=== PATIENT | female | born 1990 | race African-American/Black ===

== ENCOUNTER 2019-06-28 10:21 | Emergency (ER) | payer BC, MEDICAID, SELFPAY ==
[2019-06-28 10:50] LABS: Bilirubin Negative (Negative); Blood, Urine Negative (Negative); Clarity Clear (Clear); Glucose, Urine (Dipstick) Normal (Negative); Leukocyte Negative Leu/uL (Negative); Nitrite Negative (Negative); Protein, Urine (Dipstick) Negative (Neg-Trace); Urobilinogen Normal mg/dL (Less than 2)
[2019-06-28 10:51] LABS: #Eosinphils 0.1 thou/uL (0.0-0.7); #Lymphocytes 2.6 thou/uL (1.20-3.40); #Monocytes 0.4 thou/uL (0.11-0.59); #Neutrophils 4.3 thou/uL (1.40-6.50); %Basophils 0.5 % (0.0-1.0); %Eosinophils 1.6 % (0.0-10.0); %Lymphocytes 35.4 % (21.0-51.0); %Monocytes 4.7 % (0.0-10.0); %Neutrophils 57.9 % (42.0-75.0); Hemoglobin 13.2 g/dL (12.0-16.0); Mean Corpuscular HGB CONC 32.9 g/dL (32.0-36.0); Mean Corpuscular Hemoglobin 31.8 pg (27.0-31.0); Mean Corpuscular Volume 96.8 fL (78.0-98.0); Mean Platelet Volume 6.6 fL (7.4-10.4); Platelet Count 336 thou/uL (130-400); RBC Distribution Width 11.6 % (11.5-14.5); Red Blood Cell (RBC) Count 4.15 mill/uL (4.20-5.40); White Blood Cell (WBC) Count 7.5 thou/uL (4.8-10.8)
[2019-06-28 11:10] LABS: ALT (SGPT) 11 U/L (8-55); AST (SGOT) 14 U/L (5-34); Alkaline Phosphatase 97 U/L (40-110); Anion Gap 11 mmol/L (10-20); BUN (Urea Nitrogen) 6 mg/dL (7.0-18.7); Bilirubin, Total 0.3 mg/dL (0.2-1.2); Calc. Creatinine Clearance 0 mL/min (70-130); Calcium 8.9 mg/dL (7.8-10.44); Carbon Dioxide 24 mmol/L (22-29); Chloride 107 mmol/L (98-107); Estimated GFR-MDRD Greater than 90; Globulin 2.7 g/dL (2.4-3.5); Glucose 78 mg/dL (70-105); Lipase 8 U/L (8-78); Potassium 3.5 mmol/L (3.5-5.1); Protein, Total 6.7 g/dL (6.0-8.3); Sodium 138 mmol/L (136-145)
[2019-06-28 11:18] LABS: Pregnancy Test - Urine (BHCG) POSITIVE (Negative); Pregu Control Background? CLEAR/WHITE (CLR/WHITE); Pregu Control Bar Appear? YES (CONTROL BAR); Specific Gravity 1.013 (1.002-1.036)
--- NOTE | 2019-06-28 13:42 | ULT ---
EXAM: Transabdominal and transvaginal pelvic ultrasound with Doppler PROVIDED CLINICAL HISTORY: Pelvic pain COMPARISON: None FINDINGS: There is a single live intrauterine gestation, 7 weeks 3 days by crown-rump length. Heart rate of 141 bpm is documented. There is a small amount of perigestational hemorrhage suspected. There is focal prominence of the uterine myometrium posteriorly that could reflect fibroid but is incompletely nena cterized on the basis of this study. This produces mass effect upon the gestational sac. Right and left ovaries appear sonographically unremarkable. Color Doppler and spectral analysis of th e ovarian waveforms demonstrates normal flow bilaterally. There is no evidence for free pelvic fluid. IMPRESSION: 1. Single live intrauterine gestation, 7 weeks 4 days by crown-rump length. Small amount of perigesta tional hemorrhage. 2. Possible posterior myometrial fibroid. Follow-up recommended.
== END 2019-06-28 15:00 | disposition home or self-care (01) ==
LOC: ERS 10:21
DX: O10.911 Unspecified pre-existing hypertension complicating pregnancy, first trimester (principal); O99.341 Other mental disorders complicating pregnancy, first trimester; F41.9 Anxiety disorder, unspecified; F31.9 Bipolar disorder, unspecified; F20.9 Schizophrenia, unspecified; Z79.899 Other long term (current) drug therapy; Z3A.01 Less than 8 weeks gestation of pregnancy
CPT/HCPCS: 36415; 76856; 80053; 81003; 81025; 83690; 84702; 85025; 86900; 86901; 90384; 96372

== ENCOUNTER 2019-10-07 19:35 | Day surgery (SDC) | payer OTHER ==
[2019-10-07 20:13] VITALS: BMI 31.0
[2019-10-07] MEDS ORDERED: hydrALAZINE 20 MG/ML VIAL SLOW IVP PRN (20:50)
--- NOTE | 2019-10-07 21:16 | PDOC.FPROB ---
FMR OB H&P: HPI - History of Present Illness Chief Complaint: Fall Indentification: 28 yo F History of Present Illness: Pt is a 28 yo @ 21.6 wks by 7.4 wk US with hx of pre-E in last who presents with abdominal, groin, and back pain from a fall. The patient was at [employer] yesterday and was outside and slipped. She did a split and hit her head, belly, and knee on the car. She stated that afterwards she initially felt fine, but she later started having pain with movement. She says she has groin pain. LLQ pain that is sharp and occurs intermittently and she is unsure if they are contractions. She also has "Charley horse" pain along the sides of her spine. She denies any vaginal bleeding, LOF, or hematuria. She endorses dysuria this morning. 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: Denies any history of abnormal pap smears or STD - Surgical History Sx History: pLTCS - Social History Social History: No tobacco, alcohol, or recreational drugs - Family History Family History: Mom: HTN, DM Dad: HTN FMR OB H&P: Medications - Current Home Medications: Medication Instructions Recorded Confirmed Type Cyclobenzaprine [Flexeril] 10 mg PO TID PRN 5 Days #15 tab 10/07/19 Rx FLUoxetine HCl [Fluoxetine HCl] 40 mg PO 10/07/19 History 21/Iron Fu/Folic Acid 1 tablet PO DAILY 10/07/19 10/07/19 History [ Complete Caplet] traZODone HCl [Trazodone HCl] 100 mg PO 06/11/20 History Allergies/Adverse Reactions: Allergies Allergy/AdvReac Type Severity Reaction Status Date / Time chocolate flavor Allergy Verified 10/07/19 20:15 FMR OB H&P: ROS - Review of Systems General: denies: fever/chills Eyes: denies: vision changes ENT: denies: nasal congestion, rhinorrhea, sore throat Cardiovascular: denies: chest pain, edema Respiratory: denies: cough, congestion, shortness of breath Gastrointestinal: reports: abdominal pain. denies: nausea, vomiting, diarrhea, constipation Genitourinary (Female): reports: dysuria. denies: vaginal discharge, vaginal bleeding, contractions Musculoskeletal: reports: pain, tenderness Neurologic: denies: numbness, weakness Integumentary: reports: other (abnormal L wrist tattoo). denies: itching Hematologic/Lymphatic: denies: prolonged or excessive bleeding, enlarged lymph nodes Psychological: reports: anxiety FMR OB H&P: Vital Signs - Maternal Vital signs: BP: 105/55 HR: 86 T: 98.4 FMR OB H&P: Physical Exam - Physical Exam General: NAD, awake, alert and oriented HEENT: normocephalic and atraumatic, EOMI, MMM, conjunctiva clear, normal nasal mucosa, oropharynx clear Neck: supple, no LAD Heart: RRR, normal S1/S2, no murmurs/rubs/gallops, pulses present, no edema General: CTAB, no respiratory distress, good air movement, no rales/rhonchi, no wheezing, no retractions Abdomen: soft, gravid, bowel sound present Musculoskeletal: pulses present, FROM in all four extremities Neurological: cranial nerves II through XII intact, no focal deficit Skin: good tugor Deviation from normal: Peeling of L wrist tattoo Lymphatic: no unusual bruising or bleeding, no purpura, no petechia Psychiatric: normal mood and affect FMR OB H&P: A/P - Problem List (1) Fall Status: Acute Code(s): W19.XXXA - UNSPECIFIED FALL, INITIAL ENCOUNTER (2) Dysuria Status: Acute Code(s): R30.0 - DYSURIA (3) Status: Acute (4) Bipolar 1 disorder Status: Acute Code(s): F31.9 - BIPOLAR DISORDER, UNSPECIFIED (5) Schizophrenia Status: Acute Code(s): F20.9 - SCHIZOPHRENIA, UNSPECIFIED (6) PTSD (post-traumatic stress disorder) Status: Acute Code(s): F43.10 - POST-TRAUMATIC STRESS DISORDER, UNSPECIFIED Disposition: Pt is a 28 yo @ 21.6 by 7.4 wk US with hx of pre-E in last who presents with abdominal, groin, and back pain from a fall. 1. Fall Has not had growth US * Limited US @ bedside showed posterior placenta, HR: 134 * Will get Growth US to assess for any bleeding although pt denies vaginal bleeding and due to the fact the pt has not had a growth US * Tylenol & Flexeril for pain 2. Dysuria Will get UA to check for infection * UA: Neg 3. sIUP Poor to PNC * Will need Rhogam @ 28 wks * Poor Follow-up * Recommend return to clinic 4. Hx of Bipolar, Schizoprenia, & PTSD Continue home medications: Prozac and Trazadone Dispo: Discharge home. Schedule appt @ [facility]. Flexeril & Tylenol prn for pain. Discussion: Date/Time: 10/07/192111 This H&P was discussed with Dr. Schmidt and Dr. Villanueva who agree with the above documentation and plan. Addendum - Attending - Attending Attestation Date/Time: 10/08/19521 I personally evaluated the patient and discussed the management with the team. I agree with the History, Examination, Assessment and Plan documented above with any addition or exceptions noted below. No signs of significant trauma. Paraspinals TTP, but no midline. Analgesia and sono. Discussed importance of follow up in clinic and OBT warnings.
[2019-10-07] MEDS ORDERED: Acetaminophen 500 MG TAB PO SCH (21:30)
[2019-10-07] MEDS ORDERED: Cyclobenzaprine 10 MG TAB PO SCH (21:45)
--- NOTE | 2019-10-07 22:46 | ULT ---
OB ultrasound: HISTORY: Size and dates FINDINGS: A single live intrauterine gestation is seen with measurements corresponding to an estimated gestatio nal age of 22 weeks and RAMA at 02/10/2020. The estimated weight measures 5 27 g or 1 lb. 3 oz. measurements as follows: BPD 4.93 cm, 20 weeks 6 days HC 18.87 cm, 21 weeks 1 day AC:18.57 cm, 20 weeks 3 days FL 3.89 cm, 22 weeks 3 days heart rate measures 168 bpm. Placenta is posteriorly located without evidence of placenta previ a. Amniotic fluid is adequate. The three-vessel cord, cord insertion, bladder, lateral ventricles, cerebellum, stomach, 4 chambered heart, nose/lips, spine are visualized and demonstrate no definite anomalies. The kidneys are not well seen. IMPRESSION: Single IUP of 22 weeks estimated gestational age and RAMA at 02/10/2020
[2019-10-07 22:55] LABS: Bilirubin Small (Negative); Blood, Urine Negative (Negative); Glucose, Urine (Dipstick) Negative (Negative); Leukocyte Trace (Negative); Nitrite Negative (Negative); Protein, Urine (Dipstick) 30 mg/dL (Neg-Trace); Urobilinogen 0.2 mg/dL (Less than 2)
[2019-10-07 22:59] LABS: Clarity Clear (Clear)
[2019-10-07 23:01] LABS: RBC/HPF 0-3 HPF (0-3); Squamous Epithelial 0-3 HPF (0-3); WBC/HPF 0-3 HPF (0-3)
[2019-10-07 23:02] LABS: Bacteria/HPF None Seen HPF (None Seen); Mucous/LPF Rare LPF (<2+); Other Microscopic Description Less than 2 mL rec'd
== END 2019-10-07 23:30 | disposition home or self-care (01) ==
LOC: L&D/OP 19:35
PROVIDERS: ATTEND Emergency Medicine
DX: O99.89 Other specified diseases and conditions complicating pregnancy, childbirth and the puerperium (principal); R10.30 Lower abdominal pain, unspecified; M54.9 Dorsalgia, unspecified; R30.0 Dysuria; O99.342 Other mental disorders complicating pregnancy, second trimester; F31.9 Bipolar disorder, unspecified; F20.9 Schizophrenia, unspecified; F43.10 Post-traumatic stress disorder, unspecified; O34.211 Maternal care for low transverse scar from previous cesarean delivery; Z3A.21 21 weeks gestation of pregnancy; Z79.899 Other long term (current) drug therapy; Z91.018 Allergy to other foods; W19.XXXA Unspecified fall, initial encounter
CPT/HCPCS: 76805; 81003; 81015; 99283

== ENCOUNTER 2019-11-28 23:19 | Day surgery (SDC) | payer OTHER ==
[2019-11-28 23:47] VITALS: BMI 29.8
[2019-11-29] MEDS ORDERED: hydrALAZINE 20 MG/ML VIAL SLOW IVP PRN (00:44)
--- NOTE | 2019-11-29 01:24 | PDOC.FPROB ---
FMR OB H&P: HPI - History of Present Illness Chief Complaint: contractions History of Present Illness: Patient is a 28 yo, @ 29.4 weeks by 7.4 week sono, PMHx of Bipolar Disorder , PTSD, Depression, Schizophrenia who presents with complaints of contractions starting 1.5 hours ago, noting they are 5-7 minutes apart. She states she has had good movement and denies vaginal bleeding, discharge or gush of fluid. She denies fever/chills. Patient reports she is not taking her medications for her mental health illness due to being incarcerated. She also reports that she is getting dialysis for protein in one of her kidneys 2x a month in [place]. Primary Care Physician: DAPHNE FMR OB H&P: Current - Care : 2 Para: 1 Gestational age: 29.4 weeks Due date: 02/10/2020 Dating Criteria: 7.4 week sono Course/Complications: poor care - OB Labs Blood type: O RH: negative Antibody Screen: positive HIV: negative RPR: negative HepBsAg: negative Rubella: immune Quad screen: negative Urine drug screen: not done (pending*) Gonorrhea: negative Chlamydia: negative Pap Smear: denies history of abnormal pap or STDs GBS: unknown FMR OB H&P: History - Past Medical History PMH: HTN, Bipolar Disorder, schizophrenia, depression, PTSD - OB History OB History: 1 pLTCS on 07/25/18 for arrest of labor at 37.5 weeks, Pre-E with this - 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: Denies history abnormal paps or STDs - Surgical History Sx History: pLTCS - Social History Social History: Smokes marijuana frequently for "pain relief", denies smoking tobacco, alcohol or drugs - Family History Family History: HTN, DM FMR OB H&P: Medications - Current Home Medications: Medication Instructions Recorded Confirmed Type FLUoxetine HCl [Fluoxetine HCl] 40 mg PO 10/07/19 History 21/Iron Fu/Folic Acid 1 tablet PO DAILY 10/07/19 10/07/19 History [ Complete Caplet] traZODone HCl [Trazodone HCl] 100 mg PO 10/07/19 History Allergies/Adverse Reactions: Allergies Allergy/AdvReac Type Severity Reaction Status Date / Time chocolate flavor Allergy Hives Verified 11/28/19 23:38 FMR OB H&P: ROS - Review of Systems General: denies: fever/chills, weight/appetite/sleep changes Eyes: denies: eye pain, vision changes ENT: denies: nasal congestion, rhinorrhea Cardiovascular: denies: chest pain, edema Respiratory: denies: cough, congestion Gastrointestinal: denies: abdominal pain, vomiting, diarrhea Genitourinary (Female): reports: contractions. denies: incontinence, dysuria, vaginal discharge, vaginal bleeding Musculoskeletal: denies: pain, stiffness Neurologic: denies: numbness, syncope Integumentary: denies: itching, rash Breast: denies: lumps, bumps Endocrine: denies: polydipsia, polyuria Hematologic/Lymphatic: denies: prolonged or excessive bleeding Psychological: reports: depression, other (Bipolar disorder, schizophrenia) FMR OB H&P: Vital Signs - Maternal Vital signs: BP 129/75, HR 71, temp 98.2F, wt 91.6kg - Heart Tones Baseline: 130 Variability: moderate Acceleration: present Deceleration: absent Category: category 1 [place] contractions every: only 1 seen over 60 minutes FMR OB H&P: Physical Exam - Physical Exam General: NAD, awake, alert and oriented HEENT: normocephalic and atraumatic, PERRLA, EOMI Neck: supple, FROM Chest: non-tender to palpation, no lesions Breast: symmetric, non-tender Heart: RRR, no murmurs/rubs/gallops General: CTAB, no respiratory distress Abdomen: soft, gravid, non-tender Musculoskeletal: normal gait and station, pulses present Neurological: sensation to pain,touch and proprioception grossly normal, DTR +1 , no focal deficit Skin: no rash, good tugor Lymphatic: no unusual bruising or bleeding, no purpura Psychiatric: normal mood and affect, other (thought content bizarre) - Pelvic Exam SVE: closed, thick and high FMR OB H&P: A/P Discussion: Date/Time: 11/29/19 0122 Patient is a 28 yo, @ 29.4 weeks by 7.4 week sono, PMHx of Bipolar Disorder , PTSD, Depression, Schizophrenia who presents with complaints of contractions. sIUP Poor to PNC closed, thick and high FHTs 130s, moderate variability, + accels, no decels; 1 contraction in 60 minutes - encouraged oral hydration - recommended return to clinic Cannabinoid Use - UDS ordered - encouraged cessation - repeat next office visit RH- Antibody positive per chart review -Will need Rhogam @ next office visit Hx of Bipolar, Depression, Schizoprenia, & PTSD - not currently taking home medications - rec continuing home medications in correctional facility Dispo: Discharge home This H&P was discussed with Dr. Tavares and Dr. Rg who agree with the above documentation and plan. Addendum - Attending - Attending Attestation Date/Time: 11/29/19 0804 I personally evaluated the patient and discussed the management with Dr. Elizabeth/ Chaitanya. I agree with the History, Examination, Assessment and Plan documented above with any addition or exceptions noted below. pre-labor CTX likely 2/2 volume depletion. 2 CTX seen on toco by me. Sent back to retirement. Needs f/u this week at clinic. UA and UDS unremarkable.
[2019-11-29 01:53] LABS: Bacteria/HPF None Seen HPF (None Seen); Bilirubin Negative (Negative); Blood, Urine Negative (Negative); Clarity Clear (Clear); Glucose, Urine (Dipstick) Normal (Negative); Ketone, Urine Negative (Negative); Leukocyte 25 Leu/uL (Negative); Nitrite Negative (Negative); Protein, Urine (Dipstick) Negative (Neg-Trace); RBC/HPF 0-3 HPF (0-3); Specific Gravity, Urine 1.009 (1.002-1.036); Squamous Epithelial None Seen HPF (0-3); Urobilinogen Normal mg/dL (Less than 2); WBC/HPF 0-3 HPF (0-3); pH, Urine 6.5 (5.0-9.0)
[2019-11-29 02:06] LABS: Amphetamine Not Detected (NotDetected); Barbiturates Screen Not Detected (NotDetected); Benzodiazepine Screen Not Detected (NotDetected); Cocaine Metabolite Screen Not Detected (NotDetected); Medtox Control Line Valid? VALID (VALID); Medtox Reader # READER 4; Methadone Not Detected (NotDetected); Methamphetamine Not Detected (NotDetected); Opiate Screen Not Detected (NotDetected); Oxycodone Screen Not Detected (NotDetected); Phencyclidine (PCP) Not Detected (NotDetected); THC/Cannabinoid Screen Not Detected (NotDetected); Tricyclic Screen Not Detected (NotDetected)
[2019-11-29 02:08] LABS: Urine Culture Reflex Yes Yes
== END 2019-11-29 01:13 ==
LOC: L&D/OP 23:19
PROVIDERS: ATTEND Obstetrics & Gynecology
DX: O47.03 False labor before 37 completed weeks of gestation, third trimester (principal); O99.343 Other mental disorders complicating pregnancy, third trimester; F31.9 Bipolar disorder, unspecified; F20.9 Schizophrenia, unspecified; F43.10 Post-traumatic stress disorder, unspecified; O34.211 Maternal care for low transverse scar from previous cesarean delivery; O11.3 Pre-existing hypertension with pre-eclampsia, third trimester; O10.913 Unspecified pre-existing hypertension complicating pregnancy, third trimester; Z3A.29 29 weeks gestation of pregnancy; Z79.899 Other long term (current) drug therapy; Z91.02 Food additives allergy status
CPT/HCPCS: 80306; 81001; 87086; 99283

== ENCOUNTER 2020-02-02 10:06 | Day surgery (SDC) | payer OTHER ==
--- NOTE | 2020-02-02 10:38 | PDOC.FPROB ---
FMR OB H&P: HPI - History of Present Illness Chief Complaint: Contractions History of Present Illness: Patient is a 29 yo F @ 38.5 weeks based on US @ 7.3 week US, RAMA 02/10/2020, who presents due to contractions and loss of her mucous plug. She states she had contractions throughout the night every 4 minutes, and she lost her mucous plug around 0300 this morning. She states since this morning her contractions have calmed down. She states she has had a small trickle of fluid down her leg today, unknown color, but denies any gush of fluids. She denies bleeding. States baby is active. FMR OB H&P: Current - Care : 3 Para: 1011 Gestational age: 38.5 wks Due date: 02/10/2020 Dating Criteria: 7.3 week sono Course/Complications: Incarceration interrupting care - OB Labs Blood type: O RH: negative Antibody Screen: negative HIV: negative RPR: negative HepBsAg: negative Rubella: immune Gonorrhea: negative Chlamydia: negative GBS: unknown H&H: 11.7/34.8 Platelets: 297 FMR OB H&P: History - Past Medical History PMH: Anxiety MDD PTSD Migraine - OB History OB History: Hx of pre-E wit severe features Rh Negative Previous 1 year ago, patient states she was a mIOL and failed to progress, no complciations of csection Acid Reflux Spontaneous in 2016 - 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: 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 - Surgical History Sx History: None - Social History Social History: Hx of marijuana use Hx of "pill popping" Denies drug use, tobacco, - Family History Family History: Maternal grandmother: ID, throat cancer - smoker Maternal grandfather: HLD Mother: HTN, Bipolar, Depression Father: HTN, Depression Sister: HTN FMR OB H&P: Medications - Current Home Medications: Medication Instructions Recorded Confirmed Type FLUoxetine HCl [Fluoxetine HCl] 40 mg PO DAILY 10/07/19 02/03/20 History 21/Iron Fu/Folic Acid 1 tablet PO DAILY 10/07/19 02/03/20 History [ Complete Caplet] traZODone HCl [Trazodone HCl] 100 mg PO DAILY 10/07/19 02/03/20 History Allergies/Adverse Reactions: Allergies Allergy/AdvReac Type Severity Reaction Status Date / Time chocolate flavor Allergy Hives Verified 02/03/20 11:46 FMR OB H&P: ROS - Review of Systems General: denies: fever/chills, weight/appetite/sleep changes Eyes: denies: eye pain, vision changes ENT: denies: nasal congestion, rhinorrhea Cardiovascular: reports: edema (1+ pitting edema bilaterally). denies: chest pain, palpitation Respiratory: denies: cough, shortness of breath Gastrointestinal: denies: nausea, vomiting, diarrhea, constipation Genitourinary (Female): reports: vaginal discharge, contractions. denies: incontinence, dysuria, vaginal bleeding Musculoskeletal: denies: pain, stiffness Neurologic: denies: numbness, syncope, seizures Integumentary: denies: itching, rash Breast: denies: lumps, bumps Hematologic/Lymphatic: denies: prolonged or excessive bleeding, enlarged lymph nodes Psychological: reports: depression. denies: anxiety FMR OB H&P: Vital Signs - Maternal Vital signs: BP 120/70, HR 84, T 97.9, - Heart Tones Baseline: 140 Variability: moderate Acceleration: present Deceleration: absent Category: category 1 [place] contractions every: 1 in an hour stip FMR OB H&P: Physical Exam - Physical Exam General: NAD HEENT: normocephalic and atraumatic, PERRLA Neck: supple, FROM Heart: RRR, normal S1/S2 General: CTAB, no respiratory distress Abdomen: non-tender, bowel sound present Musculoskeletal: normal gait and station, pulses present, FROM in all four extremities Neurological: no focal deficit Skin: no rash, good tugor Lymphatic: no unusual bruising or bleeding, no purpura Psychiatric: intact recent and remote memory, good judgement and insight, normal mood and affect - Pelvic Exam Cervix: no masses, no lesions, no blood Deviation from normal: no fluid pooling, no pooling with valsalva SVE: closed, thick, high Membranes: intact FMR OB H&P: A/P Discussion: Date/Time: 02/02/20 1038 Patient is a 29 yo F @ 38.5 weeks based on US @ 7.3 weeks, RAMA 02/11/2020, who presents due to contractions and loss of her mucous plug. Closed/thick/high on check today. Term Labor Previous delivery due to labor failure to progress Patient plans to have repeat c section Reviewed images from [facility] U/S, 7.3 week [address] places RAMA 02/11/2020 Bed-side US performed by Dr. Elizabeth/Patsy today showed baby cephalic, deepest vertical pocket >5, placenta fundal L Sterile speculum exam revealed no pooling, no fluid from os with valsalva Labs negative at visit on 12/21/2019 - will get GBS swab, covid swab today - patient is scheduled patient for csection 02/04/2020 at noon - gave patient ED precautions for possible labor or preeclampsia symptoms Hx of Preeclampsia - BPs wnl today, highest of 120/70 - no severe features - pt states she is taking asa Hx of MDD, Anxiety, Schizophrenia - continue trazadone, prozac Hx of reflux - controlled This H&P was discussed with Dr. Schmidt who agrees with the above documentation and plan. Addendum - Attending - Attending Attestation Date/Time: 02/03/20 2432 I personally evaluated the patient and discussed the management with the team. I agree with the History, Examination, Assessment and Plan documented above with any addition or exceptions noted below. Variable story from patient. Loss of mucous plug vs none, no rupture, no preE symptoms. She tells me contractions have resolved. +FM. No VB. Neg pooling/valsalva. Normal fluid. FHTs cat 1, toco quite. Scheduled for c/s on Friday. Reviewed dating sono - CRL would make her 39/0 on Friday. Return prec autions discussed.
[2020-02-02 12:40] VITALS: BMI 34.0
[2020-02-02 18:58] LABS: SARS-CoV-2 MS2 Positive; SARS-CoV-2 N Gene Negative; SARS-CoV-2 S Gene Negative; SARS-CoV-2 by NAA Not Detected (NotDetected); SARS-CoV-2 orf1ab Negative
== END 2020-02-02 12:20 | disposition home or self-care (01) ==
LOC: L&D/OP 10:06
PROVIDERS: ATTEND Emergency Medicine
DX: O47.1 False labor at or after 37 completed weeks of gestation (principal); O99.891 Other specified diseases and conditions complicating pregnancy; N89.8 Other specified noninflammatory disorders of vagina; O99.613 Diseases of the digestive system complicating pregnancy, third trimester; K21.9 Gastro-esophageal reflux disease without esophagitis; O99.343 Other mental disorders complicating pregnancy, third trimester; F41.9 Anxiety disorder, unspecified; F32.9 Major depressive disorder, single episode, unspecified; F43.10 Post-traumatic stress disorder, unspecified; F20.9 Schizophrenia, unspecified; O09.293 Supervision of pregnancy with other poor reproductive or obstetric history, third trimester; O34.219 Maternal care for unspecified type scar from previous cesarean delivery; Z3A.38 38 weeks gestation of pregnancy; Z79.899 Other long term (current) drug therapy; Z91.018 Allergy to other foods; Z20.828 Contact with and (suspected) exposure to other viral communicable diseases
CPT/HCPCS: 76815; 87077; 87081; 87635; U0003

== ENCOUNTER 2020-02-03 11:11 | Inpatient (IN) | payer OTHER ==
[2020-02-03] MEDS ORDERED: FLU VACC QS2020-21(6MOS UP)/PF 60 MCG/0.5 ML SYRINGE IM ONE (12:00)
--- NOTE | 2020-02-03 12:41 | PDOC.FPROB ---
FMR OB H&P: HPI - History of Present Illness Chief Complaint: contractions History of Present Illness: Patient is a 29 yo F @ 38.6 weeks based on US @ 7.3 week US, RAMA 02/10/2020. Patient presents stating that she has been having contractions since last night, every 2-3 minutes. States she is still having them now. Notes that she also has some constant tiny amount of fluid leakage, clear. She reports some black floaters in her vision that have been there since yesterday, denies hea dache, dizzy, chest pain, shortness of breath, fever, urinary symptoms. Patient presented yesterday to the ED and was brought up to L&D where she was monitored and a speculum exam was performed showing no pooling. FHTs yesterday were cat I, with 1 contraction in an hour. Patient was sent home with a scheduled csection for 02/04/2020. FMR OB H&P: Current - Care : 3 Para: 1011 Gestational age: 38.6 weeks Due date: 02/10/2020 Dating Criteria: 7.3 week sono Course/Complications: Incarceration interrupting care - OB Labs Blood type: O RH: negative Antibody Screen: negative HIV: negative RPR: negative HepBsAg: negative Rubella: immune Quad screen: negative Urine drug screen: negative Gonorrhea: negative Chlamydia: negative H&H: 11.7/34.8 Platelets: 297 FMR OB H&P: History - Past Medical History PMH: Anxiety MDD PTSD Migraine - OB History OB History: Hx of pre-E wit severe features Rh Negative Previous 1 year ago, patient states she was a mIOL and failed to progress, no complciations of csection Acid Reflux Spontaneous in 2016 - 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: 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 - Surgical History Sx History: none - Social History Social History: Hx of marijuana use Hx of "pill popping" Denies drug use, tobacco, alcohol - Family History Family History: Maternal grandmother: MS, throat cancer - smoker Maternal grandfather: HLD Mother: HTN, Bipolar, Depression Father: HTN, Depression Sister: HTN FMR OB H&P: Medications - Current Home Medications: Medication Instructions Recorded Confirmed Type FLUoxetine HCl [Fluoxetine HCl] 40 mg PO DAILY 10/07/19 02/03/20 History 21/Iron Fu/Folic Acid 1 tablet PO DAILY 10/07/19 02/03/20 History [ Complete Caplet] traZODone HCl [Trazodone HCl] 100 mg PO DAILY 10/07/19 02/03/20 History Allergies/Adverse Reactions: Allergies Allergy/AdvReac Type Severity Reaction Status Date / Time chocolate flavor Allergy Hives Verified 02/03/20 11:46 FMR OB H&P: ROS - Review of Systems General: denies: fever/chills, weight/appetite/sleep changes Eyes: reports: scotomas. denies: eye pain ENT: denies: nasal congestion, rhinorrhea Cardiovascular: reports: edema. denies: chest pain, palpitation Gastrointestinal: denies: abdominal pain, bright red blood Genitourinary (Female): reports: vaginal discharge (clear), contractions. denies: incontinence, dysuria, vaginal bleeding Musculoskeletal: reports: stiffness Neurologic: denies: numbness, syncope, seizures Integumentary: denies: itching, rash Breast: denies: lumps, bumps Endocrine: denies: cold intolerance, heat intolerance Hematologic/Lymphatic: denies: prolonged or excessive bleeding, enlarged lymph nodes Psychological: reports: depression. denies: anxiety FMR OB H&P: Vital Signs - Maternal Vital signs: BP: 134/84, HR 88, temp 98.3 - Heart Tones Baseline: 140 Variability: moderate Acceleration: present Deceleration: absent Category: category 1 [place] contractions every: none FMR OB H&P: Physical Exam - Physical Exam General: NAD HEENT: normocephalic and atraumatic, PERRLA Neck: supple Chest: non-tender to palpation Breast: symmetric, non-tender Heart: RRR, normal S1/S2 General: CTAB, no respiratory distress, no wheezing Abdomen: gravid, non-tender Neurological: no focal deficit Skin: no rash, good tugor Lymphatic: no unusual bruising or bleeding, no purpura Psychiatric: intact recent and remote memory, good judgement and insight FMR OB H&P: A/P Discussion: Date/Time: 02/03/20 1241 Patient is a 29 yo F @ 38.6 weeks based on US @ 7.3 weeks, RAMA 02/11/2020, who presents due to contractions and loss of her mucous plug. Closed/thick/high on check today. Term Labor Previous delivery due to labor failure to progress Patient plans to have repeat c section Reviewed images from [facility] U/S, 7.3 week sono [facility] RAMA 02/11/2020 Bed-side US performed by Dr. Elizabeth/Patsy today showed baby cephalic, deepest vertical pocket >5, placenta fundal L Labs negative at visit on 12/21/2019 Sterile speculum exam revealed no pooling, no fluid from os with valsalva - covid swab negative, GBS pending - amnisure + for AROM - Will admit for csection today Hx of Preeclampsia - BPs wnl today, highest of 134/84 - +scotomas, denies other severe features - pt states she is taking asa Hx of MDD, Anxiety, Schizophrenia - continue trazadone, prozac Hx of reflux - controlled This H&P was discussed with Dr. Schmidt who agrees with the above documentation and plan. Addendum - Attending - Attending Attestation Date/Time: 02/03/20 8036 I personally evaluated the patient and discussed the management with the team. I agree with the History, Examination, Assessment and Plan documented above with any addition or exceptions noted below. Term latent labor (changed from yesterday) with +amnisure. Plan for repeat c- section. I discussed the r/b/a/i of repeat , including pain, bleeding, infection, damage to bowel, bladder, and other internal organs, need for transfusion, surgical methods to control bleeding up to and including hysterectomy, repeat operation, and prolonged hospitalization. She voices understanding and desires to proceed.
[2020-02-03 12:50] LABS: Amnisure Test RUPTURE DETECTED (No Rupture)
[2020-02-03 12:52] LABS: Amnisure Internal Control QC ACCEPTABLE (ACCEPTABLE)
[2020-02-03] MEDS ORDERED: Promethazine HCl 25 MG/ML VIAL IM PRN ×2 (13:36→18:17)
[2020-02-03] MEDS ORDERED: Butorphanol Tartrate 1 MG/ML VIAL SLOW IVP PRN (13:36)
[2020-02-03] MEDS ORDERED: Ondansetron PF 4 MG/2 ML Vial IVP PRN ×2 (13:36→18:17)
[2020-02-03] MEDS ORDERED: hydrALAZINE 20 MG/ML VIAL SLOW IVP PRN ×2 (13:36→20:27)
[2020-02-03] MEDS ORDERED: Acetaminophen 500 MG TAB PO PRN (13:36)
[2020-02-03] MEDS ORDERED: Azithromycin 500 MG in Sodium Chloride 0.9% 250 ML 250 ML IVPB SCH (13:45)
[2020-02-03] MEDS ORDERED: Bicitra 30 ML UDCUP PO SCH (13:45)
[2020-02-03] MEDS ORDERED: CEFAZOLIN 2 GM in Premix Bag 1 BAG IVPB SCH (13:45)
[2020-02-03 14:59] LABS: Hemoglobin 12.9 g/dL (12.0-16.0); Mean Corpuscular HGB CONC 32.6 g/dL (32.0-36.0); Mean Corpuscular Hemoglobin 33.4 pg (27.0-31.0); Platelet Count 291 thou/uL (130-400); Red Blood Cell (RBC) Count 3.86 mill/uL (4.20-5.40); White Blood Cell (WBC) Count 7.6 thou/uL (4.8-10.8)
[2020-02-03] MEDS ORDERED: ePHEDrine 50 MG/ML VIAL ONE (15:27)
[2020-02-03] MEDS ORDERED: PHENYLEPHRINE-NS 100 MCG/ML 10 ML SYRINGE ONE (15:27)
[2020-02-03] MEDS ORDERED: Oxytocin 10 UNITS/ML VIAL ONE (15:27)
[2020-02-03] MEDS ORDERED: Ondansetron PF 4 MG/2 ML Vial ONE (15:27)
[2020-02-03 15:39] LABS: HBSAg Index 0.15 S/CO (0-0.99); Hep B Surf Ag Non-Reactive S/CO (NonReactive); Syphilis Antibody Nonreactive (Nonreactive); Syphilis Antibody Index 0.07 S/CO (<1.00 Non-Reactive)
[2020-02-03] MEDS ORDERED: Penicillin G Potassium 5 MILL.UNITS in Sodium Chloride 0.9% 100 ML IVPB SCH (15:45)
[2020-02-03] MEDS ORDERED: diphenhydrAMINE 50 MG/ML VIAL ONE (17:45)
[2020-02-03] MEDS ORDERED: Promethazine HCl 25 MG SUPP PR PRN (18:17)
[2020-02-03] MEDS ORDERED: diphenhydrAMINE 50 MG/ML VIAL IVP PRN (18:17)
[2020-02-03] MEDS ORDERED: Ketorolac Tromethamine 30 MG/ML VIAL IVP PRN (18:17)
[2020-02-03] MEDS ORDERED: Naloxone HCl 0.4 mg/ml Vial IV PRN (18:17)
[2020-02-03] MEDS ORDERED: Naloxone HCl 0.4 mg/ml Vial IVP PRN ×2 (18:17)
[2020-02-03 18:24] VITALS: BMI 34.8
[2020-02-03 18:28] LABS: Amphetamine Not Detected (NotDetected); Barbiturates Screen Detected (NotDetected); Benzodiazepine Screen Not Detected (NotDetected); Cocaine Metabolite Screen Not Detected (NotDetected); Medtox Control Line Valid? VALID (VALID); Medtox Reader # READER 4; Methadone Not Detected (NotDetected); Methamphetamine Not Detected (NotDetected); Opiate Screen Not Detected (NotDetected); Oxycodone Screen Not Detected (NotDetected); Phencyclidine (PCP) Not Detected (NotDetected); THC/Cannabinoid Screen Detected (NotDetected); Tricyclic Screen Not Detected (NotDetected)
[2020-02-03] MEDS ORDERED: Communication Order-Pharmacy FS SCH (18:30)
[2020-02-03] MEDS ORDERED: diphenhydrAMINE 50 MG/ML VIAL IVP SCH (18:30)
--- NOTE | 2020-02-03 18:33 | PDOC.OPDEL ---
OB Operative/Delivery Note - Findings A Sex: female - 1 min: 8 - 5 min: 9 - Additional Findings/Plan Compilations/Other Findings: Date of Procedure: 02/03/2020 Resident Surgeon: Dr. Nicola Hamm Handling Tech Surgeon: Dr. Fidelia Elizabeth Attending Surgeon: Dr. Himanshu Schmidt Procedure: Repeat low transverse caesarean section Preoperative Diagnosis: 1)Term intrauterine 2)Previous 3)Sponatenous rupture of membranes 4)Latent labor 5)Unknown GBS status Postoperative Diagnosis: 1)same as above Anesthesia: spinal Indications: The patient is a 29yo year old G3,P1011 female at 38.6 weeks gestation who presents for a repeat scheduled . Procedure in Detail: After risks, benefits, and alternatives were explained to the patient, she gave informed consent. Pre-operative antibiotics included Cefazolin 2 gram IV, Azithro 500mg, Penicillin 5 then 2.5 for unknown GBS and ROM. The patient was taken to the operating room and spinal anesthesia was initiated. She was placed in the supine position with a left tilt and prepped and draped in usual sterile fashion. A Pfannenstiel incision was made with a scalpel and carried down to the level of the fascia which was sharply nicked. The fascial cut was extended bilaterally with Raeford sissors. The inferior and superior edges of the cut fascial edges were elevated with John clamps and the underlying rectus muscles were sharply and bluntly dissected free. There was significant adherence from adehsions and two small button holes were made in the fascia. The recti were divided digitally and retracted manually. The peritoneum was elevated with hemostats and entered sharply and retracted manually. Tyler O was placed after manual abdominal sweep was performed. A low transverse score was made with the scalpel and the uterus was entered in the midline with the scalpel. Clear fluid was seen. The hysterotomy was extended manually. The infant was noted to be vertex and was easily delivered by fundal pressure. Mouth and nares were bulb suctioned. Cord clamped and cut and grossly normal female was handed to waiting nurse. Cord blood was obtained. Placenta was manually extracted, found to be intact with 3 vessel cord and discarded. The uterus was found to be firm and the endometrium was curetted with a dry lap. The uterus was closed with a running locking #1 mono suture. Following this hemostasis was noted. The abdomen was irrigated with saline and suctioned free of clots. The Tyler O was removed and uterus was again noted to be hemostatic. Fascial button holes were closed with figures of 8 stitches with 3-0 vicryl. The fascia was closed with a running non- locking 0-PDS. The subcutaneous tissue was irrigated and there were no bleeders and was then closed with 3-0 vicryl. The skin was approximated with awais and a pressure dressing was placed. All counts were correct. The patient tolerated the procedure well and was taken to the recovery room in stable condition. Quantitative Blood Loss: 587 ml Complications: None Specimens: Cord blood sent to lab for blood type Findings: Grossly normal female with Apgars of 8 and 9. Grossly normal placenta with 3 vessel cord discarded. Drains: Gomes to gravity draining clear urine Addendum - Attending - Attending Attestation Date/Time: 02/04/20 1213 I was present and scrubbed for all critical portions of the procedure.
[2020-02-03] MEDS ORDERED: NS / Oxytocin 40 units/1000ml 1,000 ML ONE (19:01)
[2020-02-03] MEDS ORDERED: Misoprostol 200 MCG TAB PR PRN (20:27)
[2020-02-03] MEDS ORDERED: Methylergonovine 0.2 MG/ML VIAL IM PRN (20:27)
[2020-02-03] MEDS ORDERED: Bisacodyl 10 MG SUPP PR PRN (20:27)
[2020-02-03] MEDS ORDERED: diphenhydrAMINE 25 MG CAP PO PRN (20:27)
[2020-02-03] MEDS ORDERED: Acetaminophen 325 MG TAB PO PRN (20:27)
[2020-02-03] MEDS ORDERED: Simethicone Chewable 80 MG TAB PO PRN (20:27)
[2020-02-03] MEDS ORDERED: Methylergonovine 0.2 MG TAB PO PRN (20:27)
[2020-02-03] MEDS ORDERED: Lanolin Ointment 7 GM TUBE TOP PRN (20:27)
[2020-02-03] MEDS: Ibuprofen 800 MG TAB PO SCH (22:00)
--- NOTE | 2020-02-04 02:59 | PDOC.BPN ---
- Brief Progress Note Encounter Date: 02/04/20 Encounter Time: 00:20 6 hr Post-Op C section note Patient is feeling well. Denies headache/vision changes, SOB/cough, palpitations/chest pain, lightheadedness. Pain is well controlled. Patient reports she just took a dose of benadryl for itching. Vitals: T 98.8, P 87, R 18, BP 140/79, 99% on RA QBL: 758 Physical exam: Lungs: BCTA Cardiac: RRR Abd: fundus firm and below umbilicus, appropriately TTP Lochia minimal Ext: no swelling, pulses 2+ Plan: Continue routine PP care. BP 140/79, No severe range BPs. Will continue to monitor blood pressures.
--- NOTE | 2020-02-04 03:06 | PDOC.BPN ---
- Brief Progress Note Encounter Date: 02/04/20 Encounter Time: 02:45 Called to bedside. Patient was informed that her urine drug screen was positive, and was upset that it was collected without her permission. Discussed that UDS are routine for any patient with a history of drug use. Patient was upset, stating that her rights were violated. Discussed that we were performing a UDS/mec tox on baby as well, and would contact case management if baby's drug screens were positive. Patient reports she will have her mom bring her home psych medications in the morning. She appeared less upset after her concerns were voiced and our discussion. We are available if she has any further questions or concerns.
[2020-02-04] MEDS ORDERED: HYDROcodone/Acetaminophen 5/325 mg Tablet PO PRN (06:30)
[2020-02-04] MEDS: Penicillin G 2.5 MILL.units 2.5 MILL.UNITS in Premix Bag 1 BAG IVPB SCH ×6 (06:37→20:34)
[2020-02-04] MEDS: Ibuprofen 800 MG TAB PO SCH ×3 (06:39→21:58)
--- NOTE | 2020-02-04 08:49 | PDOC.PP ---
Post Progress Note Post Day #: 1 Subjective: doing well this morning. became upset last night over wee bag on baby without her knowledge. discussed importance and pt agreeable today. no complaints. PO intake tolerated: yes Flatus: yes Ambulation: no (spinal active until a couple hours ago) Vital Signs (12 hours) Temp Pulse Resp BP Pulse Ox 02/04/20 08:26 98.6 F 68 20 122/81 98 02/04/20 04:45 98.1 F 77 18 130/71 02/03/20 23:30 98.8 F 87 18 140/79 02/03/20 22:10 98.5 F 84 15 136/91 H 98 Weight Weight 107.048 kg - Physical Examination General: NAD Cardiovascular: no m/r/g, RRR Respiratory: clear to auscultation bilaterally Abdominal: + bowel sounds, lochia, no distention, appropriately TTP Skin: CS incision dry & intact, no rash Neurological: no gross focal deficits Psychiatric: A&Ox3, normal affect Result Diagrams: 02/03/20 14:41 Additional Labs: Post Labs Hep Bs Antigen Non-Reactive S/CO (NonReactive) 02/03/20 14:41 Blood Type O NEGATIVE 02/03/20 14:41 - Assessment/Plan s/p rLTCs - doing well, routine PP care - pain well controlled w/o narcotics PTSD - resume fluoxetine and trazadone +UDS - canabanoids and barbs - CM consult Rh- - baby Rh+ - screen negative - 1 vial rhogam ELOS 2-3 days Addendum - Attending - Attending Attestation Date/Time: 02/04/20 1214 I personally evaluated the patient and discussed the management with the team. I agree with the History, Examination, Assessment and Plan documented above with any addition or exceptions noted below. Discussed UDS with Dr. Elizabeth and RN present. She voices understanding of protocol for checking UDS (h/o prior +). Continue routine PP care.
[2020-02-04] MEDS ORDERED: Adacel (T-DAP) 0.5 ML SYRINGE IM ONE (09:00)
[2020-02-04] MEDS: Prenatal Vitamin 1 TAB PO SCH (10:07)
[2020-02-04] MEDS ORDERED: FLU VACC QS2020-21(6MOS UP)/PF 60 MCG/0.5 ML SYRINGE IM ONE (14:45)
[2020-02-04] MEDS: HYDROcodone/Acetaminophen 5/325 mg Tablet PO PRN (20:31)
[2020-02-05] MEDS: Ibuprofen 800 MG TAB PO SCH ×2 (04:17→13:22)
[2020-02-05] MEDS: HYDROcodone/Acetaminophen 5/325 mg Tablet PO PRN ×3 (04:17→13:23)
[2020-02-05] MEDS: Penicillin G 2.5 MILL.units 2.5 MILL.UNITS in Premix Bag 1 BAG IVPB SCH ×5 (04:31→16:13)
--- NOTE | 2020-02-05 06:40 | PDOC.PP ---
Post Progress Note Post Day #: 2 Subjective: Mother doing well. no complaints or concerns this morning. plans to f/u with [facility] @ 2 & 6 weeks. more understanding of UDS/CPS protocols at this time - agreeable with cares. PO intake tolerated: yes Flatus: yes Ambulation: yes Vital Signs (12 hours) Temp Pulse Resp BP Pulse Ox 02/05/20 04:15 98.6 F 77 18 122/78 02/05/20 00:30 97.9 F 73 18 122/82 02/04/20 20:30 97.9 F 88 18 128/55 L 99 Weight Weight 107.048 kg - Physical Examination General: NAD Cardiovascular: RRR Respiratory: non-labored breathing Abdominal: + bowel sounds, no distention, appropriately TTP Skin: CS incision dry & intact, no rash Neurological: no gross focal deficits Psychiatric: A&Ox3, normal affect Result Diagrams: 02/03/20 14:41 Additional Labs: Post Labs Hep Bs Antigen Non-Reactive S/CO (NonReactive) 02/03/20 14:41 Blood Type O NEGATIVE 02/03/20 14:41 - Assessment/Plan s/p rLTCs - doing well, routine PP care - pain well controlled, only used hydrocodone x2 - f/u 2 weeks w/ PCP @ [facility] PTSD - resume fluoxetine +UDS - canabanoids and barbs - CM consulted, CPS saw mother/baby - plan for baby DC w/ grandmother, safety plan in place - mother to provide UDS for CPS prior to DC GBS unknown - s/p adequate tx prior to - no fevers, chills. appropriate pp abd pain. baby w/o signs of infection Rh- - baby Rh+ - screen negative - 1 vial rhogam administered Hx of pre-eclampsia - BP remain WNL - No concerning signs/sx ELOS 1-2 days Plan: Will plan for DC later today at 48 hrs as long as mom and baby continue to do well. Addendum - Attending - Attending Attestation Date/Time: 02/05/20 0910 I personally evaluated the patient and discussed the management with Dr. Hamm. I agree with the History, Examination, Assessment and Plan documented above with any addition or exceptions noted below. Likely home today. [place]. If no further entry then consider consistent.
[2020-02-05] MEDS: Prenatal Vitamin 1 TAB PO SCH (08:51)
[2020-02-05] MEDS ORDERED: Non-Formulary Item 1 EACH (Fluoxetine Hcl [Fluoxetine Hcl] 40 MG Capsule) PO SCH (09:00)
[2020-02-05] MEDS ORDERED: FLUoxetine HCl 20 MG CAP PO SCH (09:00)
[2020-02-05 16:21] VITALS: BP 132/74; TEMP 98.3
== END 2020-02-05 17:00 | disposition home or self-care (01) | DRG 787 ==
LOC: L&D/OP 11:11 → L&D 13:43 → 3SW 20:51
PROVIDERS: ADMIT Emergency Medicine; ATTEND Emergency Medicine
PROC: 10D00Z1 Extraction of Products of Conception, Low, Open Approach (ICD-10-PCS; principal; 2020-02-03)
DX: O34.211 Maternal care for low transverse scar from previous cesarean delivery (principal); O99.324 Drug use complicating childbirth; O99.62 Diseases of the digestive system complicating childbirth; O99.344 Other mental disorders complicating childbirth; F20.9 Schizophrenia, unspecified; F41.9 Anxiety disorder, unspecified; F12.90 Cannabis use, unspecified, uncomplicated; K66.0 Peritoneal adhesions (postprocedural) (postinfection); F43.10 Post-traumatic stress disorder, unspecified; K21.9 Gastro-esophageal reflux disease without esophagitis; Z20.828 Contact with and (suspected) exposure to other viral communicable diseases; Z3A.38 38 weeks gestation of pregnancy; Z37.0 Single live birth
CPT/HCPCS: 36415; 76815; 80306; 84112; 85027; 85461; 86780; 86850; 86870; 86900; 86901; 87340; 90384; 96372; J0690; J1200; J2270; J2405; J2540; J3490; Q0163

== ENCOUNTER 2020-10-24 15:16 | Emergency (ER) | payer OTHER ==
[2020-10-24 16:51] LABS: #Eosinphils 0.1 thou/uL (0.0-0.7); #Lymphocytes 2.2 thou/uL (1.20-3.40); #Monocytes 0.7 thou/uL (0.11-0.59); #Neutrophils 3.9 thou/uL (1.40-6.50); %Basophils 0.7 % (0.0-1.0); %Eosinophils 1.9 % (0.0-10.0); %Lymphocytes 31.8 % (21.0-51.0); %Monocytes 9.5 % (0.0-10.0); %Neutrophils 56.1 % (42.0-75.0); Hemoglobin 13.2 g/dL (12.0-16.0); Mean Corpuscular HGB CONC 32.8 g/dL (32.0-36.0); Mean Corpuscular Hemoglobin 32.2 pg (27.0-31.0); Mean Corpuscular Volume 98.2 fL (78.0-98.0); Platelet Count 304 thou/uL (130-400); RBC Distribution Width 11.6 % (11.5-14.5); Red Blood Cell (RBC) Count 4.11 mill/uL (4.20-5.40)
[2020-10-24 17:15] LABS: ALT (SGPT) 19 U/L (8-55); AST (SGOT) 19 U/L (5-34); Alkaline Phosphatase 100 U/L (40-110); Anion Gap 14 mmol/L (10-20); BUN (Urea Nitrogen) 8 mg/dL (7.0-18.7); Bilirubin, Total 0.2 mg/dL (0.2-1.2); Calc. Creatinine Clearance 0 mL/min (70-130); Calcium 9.1 mg/dL (7.8-10.44); Carbon Dioxide 22 mmol/L (22-29); Chloride 107 mmol/L (98-107); Globulin 2.6 g/dL (2.4-3.5); Glucose 98 mg/dL (70-105); Potassium 3.9 mmol/L (3.5-5.1); Protein, Total 6.6 g/dL (6.0-8.3); Sodium 139 mmol/L (136-145)
== END 2020-10-24 17:34 | disposition home or self-care (01) ==
LOC: ERS 15:16
DX: J20.8 Acute bronchitis due to other specified organisms (principal); I10 Essential (primary) hypertension; F17.210 Nicotine dependence, cigarettes, uncomplicated
CPT/HCPCS: 36415; 71045; 80053; 84484; 85025; 93005

== ENCOUNTER 2020-11-06 19:23 | Emergency (ER) | payer OTHER | END 2020-11-06 21:13 | disposition left against medical advice (07) | LOC: ERS 19:23 | DX: Z53.21 Procedure and treatment not carried out due to patient leaving prior to being seen by health care provider (principal) ==

== ENCOUNTER 2022-02-24 11:07 | Emergency (ER) | payer OTHER ==
[2022-02-24 15:51] LABS: Pregnancy Test - Urine (BHCG) Negative (Negative); Pregu Control Background? CLEAR/WHITE (CLR/WHITE); Pregu Control Bar Appear? YES (CONTROL BAR); Specific Gravity 1.026 (1.002-1.036)
== END 2022-02-24 16:11 | disposition home or self-care (01) ==
LOC: ERS 11:07
DX: N64.4 Mastodynia (principal); M25.561 Pain in right knee; G89.29 Other chronic pain; I10 Essential (primary) hypertension; F17.210 Nicotine dependence, cigarettes, uncomplicated
CPT/HCPCS: 81025

== ENCOUNTER 2022-05-17 22:28 | Emergency (ER) | payer OTHER ==
[2022-05-18] MEDS ORDERED: Acetaminophen 500 MG TAB ONE (01:38)
[2022-05-18] MEDS ORDERED: HYDROcodone/Acetaminophen 10/325 mg Tablet ONE (01:38)
== END 2022-05-18 02:07 | disposition home or self-care (01) ==
LOC: ERS 22:28
DX: M25.561 Pain in right knee (principal); G89.29 Other chronic pain; I10 Essential (primary) hypertension; F17.210 Nicotine dependence, cigarettes, uncomplicated; Z79.899 Other long term (current) drug therapy

== ENCOUNTER 2023-05-01 16:23 | Emergency (ER) | payer OTHER ==
[2023-05-01 17:23] LABS: #Eosinphils 0.1 thou/uL (0.0-0.7); #Monocytes 0.4 thou/uL (0.11-0.59); #Neutrophils 3.6 thou/uL (1.40-6.50); %Basophils 0.6 % (0.0-1.0); %Eosinophils 0.8 % (0.0-10.0); %Lymphocytes 39.2 % (21.0-51.0); %Monocytes 5.6 % (0.0-10.0); %Neutrophils 53.6 % (42.0-75.0); Hematocrit 39.7 % (36.0-47.0); Hemoglobin 12.8 g/dL (12.0-16.0); Mean Corpuscular HGB CONC 32.2 g/dL (32.0-36.0); Mean Corpuscular Hemoglobin 31.3 pg (27.0-31.0); Mean Corpuscular Volume 97.1 fl (78.0-98.0); Mean Platelet Volume 8.9 fL (7.4-10.4); Platelet Count 345 10x3/uL (130-400); RBC Distribution Width 12.6 % (11.5-14.5); Red Blood Cell (RBC) Count 4.09 mill/uL (4.20-5.40); White Blood Cell (WBC) Count 6.7 10x3/uL (4.8-10.8)
[2023-05-01 17:54] LABS: ALT (SGPT) 14 U/L (8-55); AST (SGOT) 19 U/L (5-34); Albumin 4.2 g/dL (3.5-5.0); Alkaline Phosphatase 100 U/L (40-110); Anion Gap 10 mmol/L (10-20); BUN (Urea Nitrogen) 11 mg/dL (7.0-18.7); Bilirubin, Total 0.2 mg/dL (0.2-1.2); Calc. Creatinine Clearance 0 mL/min (70-130); Calcium 8.8 mg/dL (7.8-10.44); Carbon Dioxide 28 mmol/L (22-29); Chloride 105 mmol/L (98-107); Estimated GFR 93; Globulin 2.7 g/dL (2.4-3.5); Glucose 100 mg/dL (70-105); Potassium 3.9 mmol/L (3.5-5.1); Protein, Total 6.9 g/dL (6.0-8.3); Sodium 139 mmol/L (136-145)
[2023-05-01] MEDS ORDERED: cefTRIAXone (ROCEPHIN) 500 MG VIAL ONE (18:05)
[2023-05-01 18:42] LABS: HIV (1/2) Antibody/Antigen Non-Reactive (NonReactive); HIV 1/2 INDEX 0.22 S/CO (<1.00)
[2023-05-02 11:56] LABS: Syphilis Antibody Nonreactive (Nonreactive); Syphilis Antibody Index 0.04 S/CO (<1.00 Non-Reactive)
== END 2023-05-01 18:23 | disposition home or self-care (01) ==
LOC: ERS 16:23
DX: Z11.3 Encounter for screening for infections with a predominantly sexual mode of transmission (principal); I10 Essential (primary) hypertension; F17.210 Nicotine dependence, cigarettes, uncomplicated; Z79.899 Other long term (current) drug therapy
CPT/HCPCS: 36415; 80053; 84702; 85025; 86780; 87389; 96372; 99283; J0696